=== PATIENT | female | born 1990 | race Caucasian/White ===

== ENCOUNTER 2016-11-21 15:00 | Emergency (ER) | payer MEDICAID ==
[~2016-11-21 15:00] MED LIST: IBUP800T23 PO
--- NOTE | 2016-11-21 16:08 | PD ---
HPI Chief Complaint "tightening" Date Seen: Nov 21, 2016 Time Seen: 16:00 Travel History International Travel<30 Days: No Contact w/Intl Traveler<30Days: No History of Present Illness HPI Ms. Longoria is a pleasant 26 y/o female at 18/2 weeks who presents for "tightening" on her belly. She states that around 2pm today, noticed her midline of her abdomen feel tight. Some groin tightness as well. Doesn't describe it as pain. She noticed while she was working today, which she is on her feet all day. Denies any vaginal bleeding, loss of fluids, contractions. Endorses movement. She follows with [facility] clinic. She drinks plenty of water. Denies any nausea/vomiting, diarrhea/constipation. No heartburn. No back pain. No chest pain, SOB, leg pain/edema. No problems with this . No issues with , all at term. Weeks Gestation: 18 Para: 3 : 4 History Past Medical History Medical History: Denies Significant Hx Obstetric History Obstetric History x3 at term Past Surgical History Surgical History: No Previous Surgery Family History Family History: Negative Social History Alcohol Use: No Tobacco Use: No Substance Abuse: No Allergies-Medications (Allergen,Severity, Reaction): Coded Allergies: amoxicillin (Unverified Allergy, Unknown, UNKNOWN, 09/23/16) penicillin G (Unverified Allergy, Unknown, UNKNOWN, 09/23/16) Home Meds Active Scripts Ibuprofen (Ibuprofen) 800 Mg Tab, 800 MG PO TID Y for PAIN SCALE 1 TO 10, #15 TAB TAKE WITH FOOD Prov:Sofiya Luna MD 08/26/15 Review of Systems General / Constitutional: No: Fever, Weight Gain, Chills, Other Eyes: No: Diploplia, Blurred Vision, Visual changes, Pain, Photophobia HENT: No: Headaches, Vertigo, Lightheadedness Cardiovascular: No: Irregular Rhythm, Chest Pain or Discomfort, Palpitations, Tachycardia, Syncope, Varicosities, Edema, Cyanosis Respiratory: No: Cough, Short of Breath, Other Gastrointestinal: No: Nausea, Vomiting, Diarrhea, Constipation Genitourinary: No: Urgency, Frequency, Dysuria, Decreased Urinary Output, Oliguria Musculoskeletal: No: Limited ROM, Weakness, Cramping, Edema, Pain Skin: No Rash, No Itching, No Dryness, No Lumps, No Change in Pigmentation, No Change in Nails, No Alopecia, No Lesions Neurologic: No: Weakness, Dizziness, Syncope, Focal Abnormalities, Coordination Problem, Headache, Slurred Speech, Seizures Psychiatric: No: Depression, Suicidal Ideations, Homicidal Ideation Endocrine: No: Heat Intolerance, Cold Intolerance, Polydipsia, Polyuria, Other Physical Exam Narrative GENERAL: Well-nourished, well-developed patient. SKIN: Warm and dry. HEAD: Normocephalic and atraumatic. EYES: No scleral icterus. No injection or drainage. ENT: No nasal drainage noted. Mucous membranes pink. Airway patent. NECK: Supple, trachea midline. No JVD. CARDIOVASCULAR: Regular rate and rhythm without murmurs, gallops, or rubs. RESPIRATORY: Breath sounds equal bilaterally. No accessory muscle use. ABDOMEN/GI: Abdomen soft, non-tender, bowel sounds present, no rebound, no guarding Gravid to 18 weeks size GENITOURINARY: Uterine Contractions: none FHT's: 160 EXTREMITIES: No cyanosis or edema. BACK: Nontender without obvious deformity. No CVA tenderness. NEUROLOGICAL: Awake and alert. Motor and sensory grossly within normal limits. Five out of 5 muscle strength in all muscle groups. Normal speech. Data Data Vital Signs Reviewed: Yes [facility] Medical Record Reviewed: Yes Interpretation(s) 26 y/o at 18/2 weeks presents with abdominal tightness FHT 160. No contractions on toco Fundal height: 18cm Urine clear Pt at 18 weeks with abdominal tightening, no other concerning symptoms. Auscultated heart tones in lower abdomen. No contractions on monitor -Discharge home in stable condition -F/u with OB next week -Continue good fluid intake -Return to ED if vaginal bleeding, gush of fluids, worsening pain Diagnosis Diagnosis: Primary Impression: Normal Qualified Codes: Z34.92 - Encounter for supervision of normal , unspecified, second trimester Additional Impression: Abdominal tightness Disposition: 01 DISCHARGE HOME Condition: Stable Patient Instructions: Abdominal Pain in (ED), General Instructions Agustin Pan MD, R2 Nov 21, 2016 16:08
== END 2016-11-21 16:32 | disposition home or self-care (01) ==
LOC: HOBED 15:00
DX: O26.92 Pregnancy related conditions, unspecified, second trimester (principal); R10.9 Unspecified abdominal pain; Z3A.18 18 weeks gestation of pregnancy
CPT/HCPCS: 99284

== ENCOUNTER 2017-02-26 12:11 | Emergency (ER) | payer MEDICAID ==
[~2017-02-26 12:11] MED LIST changes: -IBUP800T23 PO; +PREN29TA PO
--- NOTE | 2017-02-26 13:48 | PD ---
HPI Chief Complaint Abdominal and back pain Date Seen: Feb 26, 2017 Time Seen: 13:00 Travel History International Travel<30 Days: No Contact w/Intl Traveler<30Days: No Known Affected Area: No History of Present Illness HPI Patient is a 26 year old who presents to OB triage complaining of abdominal and back pain, which have now resolved. Patient is under the care of Dr. Pan. She describes the pain as a constant, strong achy pain, which brought her to tears. She rates the pain an 8/10. The pain lasted for approximately 40 minutes. Pain spontaneously and completely resolved. Patient reports a similar episode, which lasted for approximately 30 minutes and was alleviated by a warm bath. She denies contractions, vaginal bleeding, and fluid leakage. She reports positive movement. Patient reports no complications during this . Weeks Gestation: 32 Para: 3 : 4 History Past Medical History Medical History: Denies Significant Hx Obstetric History Obstetric History G1 - full-term, vaginal delivery, no complications G2 - full-term, vaginal delivery, no complications G2 - full-term, vaginal delivery, no complications G4 - current pregnancies, no complications Past Surgical History Surgical History: No Previous Surgery Family History Family History: Negative Social History Alcohol Use: No Tobacco Use: No Substance Abuse: No Allergies-Medications (Allergen,Severity, Reaction): Coded Allergies: amoxicillin (Unverified Allergy, Unknown, UNKNOWN, 02/16/17) penicillin G (Unverified Allergy, Unknown, UNKNOWN, 02/16/17) Home Meds Reported Medications Vit-Iron Carbonyl ( Plus Iron 29-1 mg) 29 Mg Iron-1 Mg Tab, 1 TAB PO DAILY for Nutritional Supplement, #30 TAB 0 Refills 12/11/16 Review of Systems Except as stated in HPI: all other systems reviewed are Neg Physical Exam Narrative GENERAL: Well-nourished, well-developed patient. SKIN: Warm and dry. HEAD: Normocephalic and atraumatic. EYES: No scleral icterus. No injection or drainage. ENT: No nasal drainage noted. Mucous membranes pink. Airway patent. NECK: Supple, trachea midline. No JVD. CARDIOVASCULAR: Regular rate and rhythm without murmurs, gallops, or rubs. RESPIRATORY: Breath sounds equal bilaterally. No accessory muscle use. ABDOMEN/GI: Abdomen soft, non-tender, bowel sounds present, no rebound, no guarding Gravid to 32 weeks size GENITOURINARY: Deferred. Uterine Contractions: None FHT's: Category: 1 Baseline: 140 Reactive: Reactive Variability: Moderate Decels: None EXTREMITIES: No cyanosis or edema. BACK: Nontender without obvious deformity. No CVA tenderness. NEUROLOGICAL: Awake and alert. Motor and sensory grossly within normal limits. Five out of 5 muscle strength in all muscle groups. Normal speech. Data Data Vital Signs Reviewed: Yes [facility] Medical Record Reviewed: Yes Plan Patient is a 26 year old who presents to OB triage complaining of abdominal and back pain, which have now completely resolved. Patient is under the care of Dr. Pan. * IUP- Category I tracing, reassuring. * Counselled patient on pain control using Tylenol and heating pad/warm bath or shower. * Heating pad not to be applied directly over abdomen. * Warm rather than hot bath or shower safe for fetus. * Encouraged to return to OB triage if pain returns and persists despite interventions above. * Signs of labor discussed. Diagnosis Diagnosis: Primary Impression: Abdominal pain Additional Impression: Back pain Disposition: 01 DISCHARGE HOME Condition: Stable Henrietta Brown MD R1 Feb 26, 2017 13:48
== END 2017-02-26 14:30 | disposition home or self-care (01) ==
LOC: HOBED 12:11
DX: R10.9 Unspecified abdominal pain (principal); M54.9 Dorsalgia, unspecified; O26.93 Pregnancy related conditions, unspecified, third trimester; Z3A.32 32 weeks gestation of pregnancy; Z88.0 Allergy status to penicillin
CPT/HCPCS: 59025

== ENCOUNTER → 2017-04-20 | Outpatient (CLI) | payer MEDICAID | LOC: HPND 11:02 | PROVIDERS: ATTEND Family Medicine | DX: O48.0 Post-term pregnancy (principal) | CPT/HCPCS: 76816; 76818 ==

== ENCOUNTER 2017-04-22 03:37 | Inpatient (IN) | payer MEDICAID ==
[2017-04-22] VITALS (16 sets, daily range): BP systolic 107–139; BP diastolic 65–85; PULSE 67–266; RESP 16–20; TEMP 97.6–98.4; O2SAT 98
[2017-04-22] MEDS ORDERED: LACTATED RINGER'S 1000 ML INJ 1,000 ML IV SCH (04:08)
[2017-04-22] MEDS ORDERED: LACTATED RINGER'S 1000 ML INJ 1,000 ML IV PRN (04:08)
[2017-04-22] MEDS ORDERED: ONDANSETRON HCL 4 MG/2 ML VIAL IV PUSH PRN (04:15)
[2017-04-22] MEDS ORDERED: LIDOCAINE HCL 1% 50 ML VIAL I-DERMAL PRN (04:15)
[2017-04-22] MEDS ORDERED: SODIUM CHLORID 0.9% 500 ML INJ 500 ML IV PRN (04:15)
[2017-04-22] MEDS ORDERED: OXYTOCIN 30 UNITS-500ML PREMIX 500 ML IV ONE (04:15)
[2017-04-22] MEDS ORDERED: CITRIC ACID-SODIUM CITRATE LIQ 30 ML UDC PO SCH (04:15)
[2017-04-22] MEDS ORDERED: LIDOCAINE HCL 1% 50 ML VIAL INFIL PRN (04:15)
[2017-04-22] MEDS ORDERED: MINERAL OIL 10 ML VIAL TOPICAL PRN (04:15)
--- NOTE | 2017-04-22 04:18 | PD ---
HPI Chief Complaint contractions Date Seen: Apr 22, 2017 Time Seen: 04:17 (Agustin Pan MD) Travel History International Travel<30 Days: No Contact w/Intl Traveler<30Days: No (Agustin Pan MD) History of Present Illness Weeks Gestation: 40 Para: 3 : 4 (Agustin Pan MD) History Past Medical History Medical History: Denies Significant Hx (Agustin Pan MD) Obstetric History Obstetric History 3 previous (Agustin Pan MD) Past Surgical History Surgical History: No Previous Surgery (Agustin Pan MD) Family History Family History: Negative (Agustin Pan MD) Social History Alcohol Use: No Tobacco Use: No Substance Abuse: No (Agustin Pan MD) Allergies-Medications (Allergen,Severity, Reaction): Coded Allergies: amoxicillin (Unverified Allergy, Unknown, UNKNOWN, 03/02/17) penicillin G (Unverified Allergy, Unknown, UNKNOWN, 03/02/17) Home Meds Reported Medications Vit-Iron Carbonyl ( Plus Iron 29-1 mg) 29 Mg Iron-1 Mg Tab, 1 TAB PO DAILY for Nutritional Supplement, #30 TAB 0 Refills 12/11/16 Review of Systems General / Constitutional: Weight Gain, No: Fever, Weight Loss, Chills, Other Eyes: No: Diploplia, Blurred Vision, Visual changes, Pain, Photophobia HENT: No: Headaches, Vertigo, Lightheadedness Cardiovascular: No: Irregular Rhythm, Chest Pain or Discomfort, Palpitations, Tachycardia, Syncope, Varicosities, Edema, Cyanosis Respiratory: No: Cough, Short of Breath, Other Gastrointestinal: No: Nausea, Vomiting, Diarrhea Genitourinary: No: Decreased Urinary Output, Oliguria Musculoskeletal: No: Limited ROM, Weakness, Cramping, Edema, Pain Skin: No Rash, No Itching, No Dryness, No Lumps, No Change in Pigmentation, No Change in Nails, No Alopecia, No Lesions Neurologic: No: Weakness, Dizziness, Syncope, Focal Abnormalities, Coordination Problem, Headache, Slurred Speech, Seizures Psychiatric: No: Depression, Suicidal Ideations, Homicidal Ideation Endocrine: No: Heat Intolerance, Cold Intolerance, Polydipsia, Polyuria, Other (Agustin Pan MD) Physical Exam Narrative GENERAL: Well-nourished, well-developed patient. SKIN: Warm and dry. HEAD: Normocephalic and atraumatic. EYES: No scleral icterus. No injection or drainage. ENT: No nasal drainage noted. Mucous membranes pink. Airway patent. NECK: Supple, trachea midline. No JVD. CARDIOVASCULAR: Regular rate and rhythm without murmurs, gallops, or rubs. RESPIRATORY: Breath sounds equal bilaterally. No accessory muscle use. BREASTS: Bilateral exam showed no masses , no retractions, no nipple discharge. ABDOMEN/GI: Abdomen soft, non-tender, bowel sounds present, no rebound, no guarding Gravid to 40 weeks size GENITOURINARY: External Genitalia: intact and normal in appearance Cervix: soft Dilatation: 8-9 Effacement: 90 Station: -1 Presentation: vertex Membranes: intact,bulging Uterine Contractions: q2-3 minutes FHT's: Category: 1 Baseline: 150 Reactive: yes Variability: moderate Decels: none EXTREMITIES: No cyanosis or edema. BACK: Nontender without obvious deformity. No CVA tenderness. NEUROLOGICAL: Awake and alert. Motor and sensory grossly within normal limits. Five out of 5 muscle strength in all muscle groups. Normal speech. (Agustin Pan MD) Data Data Vital Signs Reviewed: Yes Orders Orders Ob (2e) Additional Admit Info (04/22/17 03:59) Admit To Inpatient (04/22/17 ) Code Status (04/22/17 04:08) Vital Signs (Adult) .Per protocol (04/22/17 04:08) Heart (04/22/17 04:08) Amnioinfusion (04/22/17 04:08) Urinary Catheter Management .ONCE (04/22/17 04:08) Diet Npo (04/22/17 Breakfast) Lactated Ringer's 1000 Ml Inj (Lr 1000 M (04/22/17 04:08) Lactated Ringer's 1000 Ml Inj (Lr 1000 M (04/22/17 04:08) Sodium Chlorid 0.9% 500 Ml Inj (Ns 500 M (04/22/17 04:15) Sodium Chlor 0.9% 1000 Ml Inj (Ns 1000 M (04/22/17 04:28) Lidocaine 1% Inj (50 Ml) (Xylocaine 1% I (04/22/17 04:15) Citric Acid-Sodium Citrate Liq (Bicitra (04/22/17 04:15) Ondansetron Inj (Zofran Inj) (04/22/17 04:15) Fentanyl Inj (Fentanyl Inj) (04/22/17 04:15) Fentanyl Inj (Fentanyl Inj) (04/22/17 04:15) Complete Blood Count With Diff (04/22/17 04:08) Hold Clot (04/22/17 04:08) Abo/Rh Blood Type (04/22/17 04:08) Urinalysis - C+S If Indicated (04/22/17 04:08) Drug Screen, Random Urine (04/22/17 04:08) Ob/Psych Drug Screen, Urine (04/22/17 04:08) Resp Oxygen Non Rebreathe Mask (04/22/17 ) ^ Epidural / Intrathecal Infus (04/22/17 04:08) Oxytocin 30 Units-500ml Premix (Pitocin (04/22/17 04:15) Lidocaine 1% Inj (50 Ml) (Xylocaine 1% I (04/22/17 04:15) Light Mineral Oil (Muri-Lube Oil) (04/22/17 04:15) Inpatient Certification (04/22/17 ) Specimen To Be Collected PRN (04/22/17 04:08) Specimen To Be Collected PRN (04/22/17 04:08) Group B Strep: Negative (Agustin Pan MD) [facility] Medical Record Reviewed: Yes Interpretation(s) 26 y/o at 40/3 weeks presents in active labor with frequent contractions Category 1 FHT Cervical exam: 8-9/90/-1 GBS negative -Admit for delivery -Continuous FHT -Pt requests epidural if time -Anticipate vaginal delivery (Agustin Pan MD) Attending Attestation Patient presents for contractions that have increased in intensity and frequency over night. There are no alleviating factors or attempted treatments and she reports they are worsening over time. She reports normal FM, denies and LOF or VB. Admit for labor at term, expectant management (Tegan Gasca MD) Agustin Pan MD Apr 22, 2017 04:18 Tegan Gasca MD Apr 22, 2017 14:47
[2017-04-22] MEDS ORDERED: SODIUM CHLOR 0.9% 1000 ML INJ 1,000 ML IV PRN (04:28)
[2017-04-22 04:33] LABS: AUTOMATED NEUTROPHIL # 7.7 TH/MM3 (1.8-7.7); BASOPHIL # 0.1 TH/MM3 (0-0.2); BASOPHIL % 0.6 % (0.0-2.0); EOSINOPHIL # 0.1 TH/MM3 (0-0.4); EOSINOPHIL % 0.8 % (0.0-4.0); HEMATOCRIT 34.9 % (35.0-46.0); HEMOGLOBIN 11.6 GM/DL (11.6-15.3); LYMPH % 16.6 % (9.0-44.0); LYMPHOCYTE # 1.7 TH/MM3 (1.0-4.8); MEAN CORPUSCULAR HEMOGLOBIN 27.2 PG (27.0-34.0); MEAN CORPUSCULAR HGB CONC 33.2 % (32.0-36.0); MEAN PLATELET VOLUME 9.1 FL (7.0-11.0); MONO % 5.6 % (0.0-8.0); MONOCYTE # 0.6 TH/MM3 (0-0.9); NEUT % 76.4 % (16.0-70.0); PLATELET COUNT 153 TH/MM3 (150-450); RED BLOOD COUNT 4.26 MIL/MM3 (4.00-5.30); RED CELL DISTRIBUTION WIDTH 14.6 % (11.6-17.2); WHITE BLOOD COUNT 10.1 TH/MM3 (4.0-11.0)
[2017-04-22 04:38] LABS: BACTERIA, URINE OCC /hpf; BILIRUBIN, URINE NEG (NEG); BLOOD, URINE NEG (NEG); GLUCOSE,URINE NEG (NEG); KETONE, URINE NEG (NEG); MUCUS URINE FEW /lpf (OCC); NITRITE,URINE NEG (NEG); SQUAMOUS EPITHELIAL CELL URINE 4 /hpf (0-5); URINE COLOR LIGHT-YELLOW (YELLW/STRAW); URINE LEUKOCYTE ESTERASE TRACE (NEG)
--- NOTE | 2017-04-22 05:01 | HHI.HP ---
History & Physical H&P HPI Chief Complaint contractions Date Seen: Apr 22, 2017 Time Seen: 04:17 Travel History International Travel<30 Days: No Contact w/Intl Traveler<30Days: No History of Present Illness Weeks Gestation: 40 Para: 3 : 4 History (Limited) History Past Medical History Medical History: Denies Significant Hx Obstetric History Obstetric History 3 previous Past Surgical History Surgical History: No Previous Surgery Family History Family History: Negative Social History Alcohol Use: No Tobacco Use: No Substance Abuse: No Allergies-Medications Allergies-Medications (Allergen,Severity, Reaction): Coded Allergies: amoxicillin (Unverified Allergy, Unknown, UNKNOWN, 03/02/17) penicillin G (Unverified Allergy, Unknown, UNKNOWN, 03/02/17) Home Meds Reported Medications Vit-Iron Carbonyl ( Plus Iron 29-1 mg) 29 Mg Iron-1 Mg Tab, 1 TAB PO DAILY for Nutritional Supplement, #30 TAB 0 Refills 12/11/16 ROS Review of Systems General / Constitutional: Weight Gain, No: Fever, Weight Loss, Chills, Other Eyes: No: Diploplia, Blurred Vision, Visual changes, Pain, Photophobia HENT: No: Headaches, Vertigo, Lightheadedness Cardiovascular: No: Irregular Rhythm, Chest Pain or Discomfort, Palpitations, Tachycardia, Syncope, Varicosities, Edema, Cyanosis Respiratory: No: Cough, Short of Breath, Other Gastrointestinal: No: Nausea, Vomiting, Diarrhea Genitourinary: No: Decreased Urinary Output, Oliguria Musculoskeletal: No: Limited ROM, Weakness, Cramping, Edema, Pain Skin: No Rash, No Itching, No Dryness, No Lumps, No Change in Pigmentation, No Change in Nails, No Alopecia, No Lesions Neurologic: No: Weakness, Dizziness, Syncope, Focal Abnormalities, Coordination Problem, Headache, Slurred Speech, Seizures Psychiatric: No: Depression, Suicidal Ideations, Homicidal Ideation Endocrine: No: Heat Intolerance, Cold Intolerance, Polydipsia, Polyuria, Other Physical Exam Physical Exam Narrative GENERAL: Well-nourished, well-developed patient. SKIN: Warm and dry. HEAD: Normocephalic and atraumatic. EYES: No scleral icterus. No injection or drainage. ENT: No nasal drainage noted. Mucous membranes pink. Airway patent. NECK: Supple, trachea midline. No JVD. CARDIOVASCULAR: Regular rate and rhythm without murmurs, gallops, or rubs. RESPIRATORY: Breath sounds equal bilaterally. No accessory muscle use. BREASTS: Bilateral exam showed no masses , no retractions, no nipple discharge. ABDOMEN/GI: Abdomen soft, non-tender, bowel sounds present, no rebound, no guarding Gravid to 40 weeks size GENITOURINARY: External Genitalia: intact and normal in appearance Cervix: soft Dilatation: 8-9 Effacement: 90 Station: -1 Presentation: vertex Membranes: intact,bulging Uterine Contractions: q2-3 minutes FHT's: Category: 1 Baseline: 150 Reactive: yes Variability: moderate Decels: none EXTREMITIES: No cyanosis or edema. BACK: Nontender without obvious deformity. No CVA tenderness. NEUROLOGICAL: Awake and alert. Motor and sensory grossly within normal limits. Five out of 5 muscle strength in all muscle groups. Normal speech. Data Data Data Vital Signs Reviewed: Yes Orders Orders Ob (2e) Additional Admit Info (04/22/17 03:59) Admit To Inpatient (04/22/17 ) Code Status (04/22/17 04:08) Vital Signs (Adult) .Per protocol (04/22/17 04:08) Heart (04/22/17 04:08) Amnioinfusion (04/22/17 04:08) Urinary Catheter Management .ONCE (04/22/17 04:08) Diet Npo (04/22/17 Breakfast) Lactated Ringer's 1000 Ml Inj (Lr 1000 M (04/22/17 04:08) Lactated Ringer's 1000 Ml Inj (Lr 1000 M (04/22/17 04:08) Sodium Chlorid 0.9% 500 Ml Inj (Ns 500 M (04/22/17 04:15) Sodium Chlor 0.9% 1000 Ml Inj (Ns 1000 M (04/22/17 04:28) Lidocaine 1% Inj (50 Ml) (Xylocaine 1% I (04/22/17 04:15) Citric Acid-Sodium Citrate Liq (Bicitra (04/22/17 04:15) Ondansetron Inj (Zofran Inj) (04/22/17 04:15) Fentanyl Inj (Fentanyl Inj) (04/22/17 04:15) Fentanyl Inj (Fentanyl Inj) (04/22/17 04:15) Complete Blood Count With Diff (04/22/17 04:08) Hold Clot (04/22/17 04:08) Abo/Rh Blood Type (04/22/17 04:08) Urinalysis - C+S If Indicated (04/22/17 04:08) Drug Screen, Random Urine (04/22/17 04:08) Ob/Psych Drug Screen, Urine (04/22/17 04:08) Resp Oxygen Non Rebreathe Mask (04/22/17 ) ^ Epidural / Intrathecal Infus (04/22/17 04:08) Oxytocin 30 Units-500ml Premix (Pitocin (04/22/17 04:15) Lidocaine 1% Inj (50 Ml) (Xylocaine 1% I (04/22/17 04:15) Light Mineral Oil (Muri-Lube Oil) (04/22/17 04:15) Inpatient Certification (04/22/17 ) Specimen To Be Collected PRN (04/22/17 04:08) Specimen To Be Collected PRN (04/22/17 04:08) Group B Strep: Negative MDM MDM Medical Record Reviewed: Yes Interpretation(s) 26 y/o at 40/3 weeks presents in active labor with frequent contractions Category 1 FHT Cervical exam: 8-9//-1 GBS negative -Admit for delivery -Continuous FHT -Pt requests epidural if time -Anticipate vaginal delivery (Agustin Pan MD) H&P I saw and examined patient with resident and performed all quevedo portions of decision making. Reassuring FHR. SMS (Tegan Gasca MD) Agustin Pan MD Apr 22, 2017 05:01 Tegan Gasca MD Apr 22, 2017 14:48
--- NOTE | 2017-04-22 05:05 | PD.OB.DELI ---
Weeks gestation: 40 Gest age assessed date: Apr 22, 2017 Pt started active labor?: Yes Active labor start date: Apr 22, 2017 Active labor start time: 01:30 Medical induction of labor?: No Artificial rupture of membrane: No Anesthesia: None Episiotomy: None Vaginal Delivery: Normal Presentation: Occiput anterior Nuchal Cord: x2 Delayed cord clamping (45 sec): No Infant: Male Delivery date: Apr 22, 2017 Delivery time: 04:43 One Minute : 9 Five Minute : 9 Weight: 3255g Placenta: Spontaneous delivery, Intact, 3 vessel cord Laceration: No lacerations Estimated blood loss: <200ml (Agustin Pan MD) Additional Information Attending note:Called to assess patient with SVE C/C/0. SROM during examinatiion. Attending was dressed and particpated in all portions of procedure. Patient commenced spontaneous maternal expulsive efforts with atraumatic and spontaneous expulsion of head and anterior shoulder. A double nuchal cord was noted to be tight, so was very carefully double clamped and cut and the remainder of the delivered spontaneously and atraumatically. The was placed on the maternal abdomen and was vigorous. Cour blood was obtained for the nursery and the placenta delivered spontaneously and appeared to be intact. No lacerations noted. Mother and doing well. I was present and directly participated in all portions of the procedure. (Tegan Gasca MD) Agustin Pan MD Apr 22, 2017 05:05 Tegan Gasca MD Apr 22, 2017 14:53
[2017-04-22] MEDS ORDERED: ACETAMINOPHEN 325 MG TAB PO PRN (05:15)
[2017-04-22] MEDS ORDERED: oxyCODONE/ACETAMINOPHEN 5 MG/325 MG TAB PO PRN ×2 (05:15)
[2017-04-22] MEDS ORDERED: ZOLPIDEM TARTRATE 5 MG TAB PO PRN (05:15)
[2017-04-22] MEDS ORDERED: IBUPROFEN 800 MG TAB PO PRN (05:15)
[2017-04-22] MEDS ORDERED: ALUMINUM/MAGNESIUM/SIMETH 30 ML CUP PO PRN (05:15)
[2017-04-22] MEDS ORDERED: ONDANSETRON ODT 4 MG TAB PO PRN (05:15)
[2017-04-22] MEDS ORDERED: SODIUM CHLORIDE 0.9% FLUSH 10 ML FLUSH IV FLUSH PRN (05:15)
[2017-04-22] MEDS ORDERED: WITCH HAZEL 50%/GLYCERIN 12.5% 40 PAD JAR TOPICAL PRN (05:15)
[2017-04-22] MEDS ORDERED: OXYTOCIN 30 UNITS-500ML PREMIX 500 ML IV SCH (05:15)
[2017-04-22] MEDS ORDERED: DOCUSATE SODIUM 50 MG/SENNA 8.6 MG TAB PO PRN (05:15)
[2017-04-22] MEDS ORDERED: BENZOCAINE 20% TOPICAL SPRAY 60 ML CAN TOPICAL PRN (05:15)
[2017-04-22] MEDS: SODIUM CHLORIDE 0.9% FLUSH 10 ML FLUSH IV FLUSH SCH (06:45)
[2017-04-22] MEDS ORDERED: DIPHTH/TETANUS/ACEL PERTUSSIS (BOOSTER) 0.5 ML VIAL/PFS IM ONE (16:00)
[2017-04-22] MEDS ORDERED: MEASLES, MUMPS, RUBELLA VACCINE 0.5 ML VIAL SQ ONE (16:00)
--- NOTE | 2017-04-23 07:32 | HHI.OB ---
Subjective Post Day: 1 Remarks day # 1. AFVSS overnight. Pain well-controlled. Lochia about a period. Denies dysuria. No breast tenderness. She is feeding the baby via breast. Appetite good. No nausea or vomiting. Positive flatus. Small bowel movement. Ambulating well. Denies calf pain, shortness of breath, or chest pain. Otherwise, she is doing well this morning and has no other complaints. Objective Vitals/I&O Vital Signs Date Time Temp Pulse Resp B/P (MAP) Pulse Ox O2 Delivery O2 Flow Rate FiO2 04/22/17 20:00 98.1 74 16 04/22/17 20:00 126/72 (90) 04/22/17 08:16 97.6 88 18 112/72 (85) 98 Objective Remarks GENERAL: Well-nourished, well-developed patient. CARDIOVASCULAR: Regular rate and rhythm without murmurs, gallops, or rubs. RESPIRATORY: Breath sounds equal bilaterally. No accessory muscle use. ABDOMEN/GI: Abdomen soft, non-tender. Fundus: Firm, non-tender at umbilicus. GENITOURINARY: Light to moderate bleeding. EXTREMITIES: No cyanosis or edema, non-tender, without signs of DVT. Medications and IVs Current Medications Medications (Trade) Dose Ordered Sig/Frankie Route Start Time Stop Time Status Last Admin (NS Flush) 2 ml BID IV FLUSH 04/22/17 09:00 04/22/17 06:45 (NS Flush) 2 ml UNSCH PRN IV FLUSH 04/22/17 05:15 (Tylenol) 650 mg Q4H PRN PO 04/22/17 05:15 (Motrin) 800 mg Q8H PRN PO 04/22/17 05:15 (Percocet 5-325 Mg) 1 tab Q4H PRN PO 04/22/17 05:15 (Percocet 5-325 Mg) 2 tab Q4H PRN PO 04/22/17 05:15 (Americaine 20% Top Spr) 1 spray Q4H PRN TOPICAL 04/22/17 05:15 (Tucks Pads) 1 applic QID PRN TOPICAL 04/22/17 05:15 (Lainey-Colace) 2 tab Q12H PRN PO 04/22/17 05:15 (Ambien) 5 mg HS PRN PO 04/22/17 05:15 (Mag-Al Plus Susp Liq) 15 ml Q8H PRN PO 04/22/17 05:15 (Zofran Odt) 4 mg Q6H PRN PO 04/22/17 05:15 Assessment/Plan Assessment and Plan 26y/o female who is PPD#1 s/p -Continue routine care -Motrin and Percocet PRN for pain -Pericolase PRN for constipation -Encouraged OOB. Advised pelvic rest for 6 wks -Will need a follow-up appointment within 6 wks for post- check -Re: ctrl - undecided Discussed with Dr. Bass Discharge Planning Patient is cleared for discharge per OB team. She can be discharged home as long as baby is cleared by the pediatrics team. Barbara Da Silva MD Apr 23, 2017 07:32
[2017-04-23 08:00] VITALS: BP 113/68; PULSE 73; RESP 18; TEMP 97.8; O2SAT 99
[2017-04-23] MEDS: SODIUM CHLORIDE 0.9% FLUSH 10 ML FLUSH IV FLUSH SCH (09:08)
[2017-04-23] MEDS ORDERED: IBUP1TAB7 PO (12:39)
--- NOTE | 2017-04-23 12:40 | HHI.DCPOC ---
Discharge Care Plan Diagnosis: (1) (spontaneous vaginal delivery) Report Symptoms to Your Doctor -Temperature above 100.5 degrees -Redness, of incision or excessive or foul smelling drainage -Unusual pain or calf pain -Increased vaginal bleeding -Painful or difficulty urinating -Feelings of extreme sadness or anxiety after 2 weeks Goals to Promote Your Health * To prevent worsening of your condition and complications * To maintain your health at the optimal level Directions to Meet Your Goals Take your medications as prescribed Follow your dietary instruction Follow activity as directed Ensure plenty of rest for recovery Drink fluids for hydration Keep your appointments as scheduled Take your immunizations and boosters as scheduled If your symptoms worsen call your PCP, if no PCP go to Urgent Care Center or Emergency Room Smoking is Dangerous to Your Health. Avoid second hand smoke Call the 24-hour crisis hotline for domestic abuse at Kayli Parekh MD R1 Apr 23, 2017 12:40
== END 2017-04-23 13:09 | disposition home or self-care (01) | DRG 775 ==
LOC: HOBED 03:37 → H2EB 04:00 → H1EA 07:49
PROVIDERS: ADMIT Obstetrics & Gynecology; ATTEND Obstetrics & Gynecology
PROC: 10E0XZZ Delivery of Products of Conception, External Approach (ICD-10-PCS; principal; 2017-04-22)
DX: O69.1XX0 Labor and delivery complicated by cord around neck, with compression, not applicable or unspecified (principal); Z23 Encounter for immunization; Z37.0 Single live birth; Z3A.40 40 weeks gestation of pregnancy
CPT/HCPCS: 59025; 76816; 76818; 80307; 81001; 85025; 86900; 86901; G0481; J2590